=== PATIENT | male | born 1955 | race Caucasian/White ===

== ENCOUNTER → 2017-04-30 | Outpatient (CLI) | payer OTHER | LOC: RAD 12:32 | PROVIDERS: ATTEND Family Medicine | DX: I65.29 Occlusion and stenosis of unspecified carotid artery (principal) | CPT/HCPCS: 93880 ==

== ENCOUNTER → 2017-05-16 | Outpatient (CLI) | payer OTHER | END | disposition home or self-care (01) | LOC: CARD 07:59 | PROVIDERS: ATTEND Family Medicine | DX: R06.02 Shortness of breath (principal); R42 Dizziness and giddiness; R55 Syncope and collapse | CPT/HCPCS: 93225; 93226 ==

== ENCOUNTER 2017-06-21 06:23 | Day surgery (SDC) | payer OTHER ==
[~2017-06-21] VITALS: Ht 177.8 cm; Wt 81.1 kg
[2017-06-21] MEDS ORDERED: SODIUM CHLORIDE 0.9% 1,000 ML IV SCH (06:41)
[2017-06-21 06:59] VITALS: BP 160/104
[2017-06-21] MEDS ORDERED: LIDOCAINE-MPF 1%, 5ML ONE (07:22)
[2017-06-21 07:27] LABS: PROTHROMBIN TIME 10.4 Seconds (9.6-11.5)
== END 2017-06-21 17:00 ==
LOC: OUT 06:23
PROVIDERS: ATTEND Internal Medicine
DX: K74.60 Unspecified cirrhosis of liver (principal); K75.89 Other specified inflammatory liver diseases; K21.9 Gastro-esophageal reflux disease without esophagitis; E78.5 Hyperlipidemia, unspecified; I10 Essential (primary) hypertension; K31.89 Other diseases of stomach and duodenum; K76.6 Portal hypertension; F10.20 Alcohol dependence, uncomplicated; E83.110 Hereditary hemochromatosis; Z98.890 Other specified postprocedural states; Z72.89 Other problems related to lifestyle
CPT/HCPCS: 36415; 47000; 76942; 85610; 88307; 88313; 99156; 99157; J2250; J3010; J7030